=== PATIENT | female | born 1980 | race Caucasian/White ===

== ENCOUNTER 2016-12-20 12:49 | Inpatient (IN) | payer BC ==
[2016-12-20] MEDS ORDERED: Ondansetron INJ* 2 MG/ML VIAL IV ONE (13:11)
[2016-12-20 13:54] LABS: Hematocrit 39 % (35-47); Hemoglobin 12.9 g/dl (12.0-16.0); Mean Corpuscular HGB Conc 33 g/dl (31-36); Mean Corpuscular Hemoglobin 28 pg (27-31); Mean Corpuscular Volume 85 fL (80-97); Mean Platelet Volume 9 um3 (7.4-10.4); Red Blood Count 4.56 10^6/ul (4.0-5.4); Red Cell Distribution Width 14 % (10.5-15); White Blood Count 16.6 10^3/ul (3.5-10.8)
[2016-12-20] MEDS ORDERED: Dibucaine 1% 28.35 GM TUBE PR PRN (16:03)
[2016-12-20] MEDS ORDERED: Acetaminophen TAB* 325 MG PO PRN (16:03)
[2016-12-20] MEDS ORDERED: Witch Hazel PAD* JAR TOPICAL PRN (16:03)
[2016-12-20] MEDS: Ibuprofen TAB* 600 MG PO PRN (16:49)
[2016-12-20] MEDS: Docusate CAP* 100 MG PO SCH (21:00)
[2016-12-21] MEDS: Ibuprofen TAB* 600 MG PO PRN ×2 (01:12→15:47)
[2016-12-21] MEDS: Docusate CAP* 100 MG PO SCH ×2 (08:39→14:10)
[2016-12-21 08:52] LABS: Hematocrit 37 % (35-47); Hemoglobin 12.1 g/dl (12.0-16.0); Mean Corpuscular HGB Conc 33 g/dl (31-36); Mean Corpuscular Hemoglobin 28 pg (27-31); Mean Corpuscular Volume 85 fL (80-97); Mean Platelet Volume 9 um3 (7.4-10.4); Red Blood Count 4.29 10^6/ul (4.0-5.4); Red Cell Distribution Width 13 % (10.5-15); White Blood Count 13.2 10^3/ul (3.5-10.8)
[2016-12-21] MEDS ORDERED: Ferrous Gluconate TAB* 324 MG TAB PO SCH (09:00)
[2016-12-21] MEDS ORDERED: Lactobacillus Acidophilu (GG)* 1 CAP CAP PO SCH (09:00)
[2016-12-21 12:09] VITALS: BP 98/62
== END 2016-12-21 16:26 | disposition home or self-care (01) | DRG 560 ==
LOC: MCHOBOUT 12:49 → MCHOB 13:10
PROVIDERS: ADMIT Nurse Practitioner; ATTEND Nurse Practitioner
PROC: 10E0XZZ Delivery of Products of Conception, External Approach (ICD-10-PCS; principal; 2016-12-20)
PROC: 4A1HX4Z Monitoring of Products of Conception, Cardiac Electrical Activity, External Approach (ICD-10-PCS; 2016-12-20)
PROC: 10907ZC Drainage of Amniotic Fluid, Therapeutic from Products of Conception, Via Natural or Artificial Opening (ICD-10-PCS; 2016-12-20)
DX: O69.1XX0 Labor and delivery complicated by cord around neck, with compression, not applicable or unspecified (principal); O99.824 Streptococcus B carrier state complicating childbirth; Z3A.39 39 weeks gestation of pregnancy; Z37.0 Single live birth
CPT/HCPCS: 36415; 85025; 86850; 86900; 86901; A9270-GY; J2405